=== PATIENT | male | born 1950 | race Caucasian/White ===

== ENCOUNTER 2020-02-08 17:50 | Observation (INO) | payer BC ==
[2020-02-08 18:37] LABS: #Basophils 0.1 thou/uL (0.0-0.2); #Eosinphils 0.2 thou/uL (0.0-0.7); #Lymphocytes 2.5 thou/uL (1.20-3.40); #Monocytes 0.9 thou/uL (0.11-0.59); %Basophils 1.1 % (0.0-1.0); %Eosinophils 2.2 % (0.0-10.0); %Lymphocytes 23.1 % (21.0-51.0); %Monocytes 8.6 % (0.0-10.0); Hemoglobin 15.1 g/dL (14.0-18.0); Mean Corpuscular Hemoglobin 31.3 pg (27.0-31.0); Mean Corpuscular Volume 92.1 fL (78.0-98.0); Mean Platelet Volume 8.8 fL (7.4-10.4); Platelet Count 211 thou/uL (130-400); RBC Distribution Width 13.1 % (11.5-14.5); Red Blood Cell (RBC) Count 4.83 mill/uL (4.70-6.10); White Blood Cell (WBC) Count 10.8 thou/uL (4.8-10.8)
--- NOTE | 2020-02-08 18:46 | RAD ---
Chest one view HISTORY: Dyspnea. Chest pain. COMPARISON: 08/01/2016. FINDINGS: Cardiac silhouette is magnified and upper limits of normal in size. Pulmonary vasculature i s unremarkable. Mediastinum is midline. No lobar consolidation or evidence of pneumothorax. ekg monitor leads overlie the chest. IMPRESSION : No active cardiopulmonary abnormalities are demonstrated.
[2020-02-08 19:00] LABS: ALT (SGPT) 20 U/L (8-55); AST (SGOT) 16 U/L (5-34); Albumin 4.1 g/dL (3.4-4.8); Alkaline Phosphatase 65 U/L (40-110); Anion Gap 14 mmol/L (10-20); BUN (Urea Nitrogen) 10 mg/dL (8.4-25.7); Bilirubin, Total 0.5 mg/dL (0.2-1.2); Calc. Creatinine Clearance 0 mL/min (70-130); Calcium 9.1 mg/dL (7.8-10.44); Carbon Dioxide 23 mmol/L (23-31); Chloride 106 mmol/L (98-107); Estimated GFR-MDRD Greater than 90; Globulin 2.4 g/dL (2.4-3.5); Glucose 132 mg/dL (80-115); Potassium 3.3 mmol/L (3.5-5.1); Protein, Total 6.5 g/dL (5.8-8.1); Sodium 140 mmol/L (136-145)
[2020-02-08] MEDS ORDERED: Nitroglycerin 0.4 MG TAB 1 EACH ONE (19:19)
[2020-02-08] MEDS ORDERED: Aspirin 325 MG TAB ONE (19:19)
[2020-02-08] MEDS ORDERED: Ondansetron PF 4 MG/2 ML Vial ONE (22:25)
[2020-02-08] MEDS ORDERED: Morphine 4 MG/ML VIAL ONE (22:25)
--- NOTE | 2020-02-08 22:38 | CT ---
CT arteriogram chest with IV contrast and 3-D imaging HISTORY: Dyspnea. Chest pain. FINDINGS: Small low density filling defects are present within segmental and subsegmental branches of the right upper lobe and right lower lobe. Contrast passes beyond the emboli. No filling defects on the left. Lungs are well-inflated. No mediastinal adenopathy. No pleural fluid or pneumothorax. IMPRESSION : Pulmonary emboli right lung with overall low clot burden. Findings were called to Dr. Waldrop in the emergency department at 2231 hours Code CR.
[2020-02-08] MEDS ORDERED: Enoxaparin Sodium 80 MG/0.8 ML SYRINGE ONE (22:47)
[2020-02-08] MEDS ORDERED: Enoxaparin Sodium 30 MG/0.3 ML SYRINGE ONE (22:47)
--- NOTE | 2020-02-08 23:14 | PDOC.FPRHP ---
- History of Present Illness Chief Complaint: SOB, chest tightness History of Present Illness: 69yo CM with h/o PVCs, HLD, HTN, DMII presents for acute worsening of SOB with associated chest tightness. Patient states he has chronic mild shortness of breathing with exertion and chronic substernal chest pressure but yesterday morning at acute onset of worsening shortness of breath. Persisted throughout the day and unable to sleep overnight last night. This morning noticed chest pressure was worse so decided to come into ED to be seen. He also endorses approximately 3 days ago his R calf was swollen, mild cramping pain, and has since improved. He also endorses mild LE edema that is chronic. No orthopnea or PND. No chest pain, describes as a pressure. No diaphoresis, n/v, radiation of pain, or syncopal episodes. No recent sick contacts, known COVID-19 contacts, fever/chills or cough. No recent travel, immbolization, OTC supplements, surgeries, or history of blood clots. No known family history of clotting disorders. ED Course: EKG with PVCs. Trop neg. CTA with small R PE. Given Lovenox, ASA, nitro. Admitted to tele. - Allergies/Adverse Reactions Allergies Allergy/AdvReac Type Severity Reaction Status Date / Time No Known Allergies Allergy Verified 02/09/20 00:27 - Home Medications Medication Instructions Recorded Confirmed Type Amlodipine Besylate/Benazepril 1 capsule PO DAILY 08/01/16 02/09/20 History [amLODIPine Besylate/Benazepril] Hydrochlorothiazide 25 mg PO DAILY 08/01/16 02/09/20 History Aspirin [Ecotrin Low Strength] 81 mg PO DAILY 02/08/20 02/09/20 History Atorvastatin Calcium 10 mg PO DAILY 02/08/20 02/09/20 History Metoprolol Succinate 100 mg PO DAILY 02/08/20 02/09/20 History Zolpidem Tartrate [Ambien CR] 12.5 mg PO HS PRN 02/08/20 02/09/20 History metFORMIN HCl [Metformin HCl ER] 1,000 mg PO DAILY 02/08/20 02/09/20 History Apixaban [Eliquis] 5 mg PO BID #68 tab 02/09/20 Rx - History PMHx: PVCs - followed by Dr. Barragna, HLD, DMII, HTN PSHx: knee FHx: Father of [place] at age 58 Social: No tob, social etOH, no illicits. Lives alone. Works for [employer] in [employer]. - Review of Systems General: denies: fever/chills, weight/appetite/sleep changes, fatigue Eyes: denies: vision changes ENT: denies: nasal congestion, rhinorrhea Respiratory: reports: shortness of breath, exercise intolerance. denies: cough , congestion Cardiovascular: reports: chest pain, edema. denies: palpitation, paroxysmal nocturnal dyspnea, orthopnea Gastrointestinal: denies: nausea, vomiting, diarrhea, constipation, abdominal pain Genitourinary: denies: incontinence Skin: denies: rashes Musculoskeletal: reports: pain, swelling Neurological: denies: numbness, syncope - Vital signs BP: 126/83 HR: 83 RR: 18 Tmax: 98.8 Pox: 96% on RA Wt: 108kg - Physical Exam Constitutional: NAD, awake, alert and oriented, well developed HEENT: PERRLA, EOMI, conjunctiva clear, no scleral icterus, grossly normal vision, grossly normal hearing, MMM Neck: supple, trachea midline Heart: RRR, normal S1/S2, no murmurs/rubs/gallops, pulses present, other (1+ pitting edema to mid-ochoa) Lungs: CTAB, no respiratory distress, good air movement, no rales/rhonchi, no wheezing Abdomen: soft, non-tender, bowel sounds present, no masses/distention Musculoskeletal: normal structure, normal tone, other (R calf midly TTP as compared to L, no significant difference in size grossly) Neurological: no focal deficit Skin: no rash/lesions Heme/Lymphatic: no unusual bruising or bleeding Psychiatric: normal mood and affect, good judgment and insight, intact recent and remote memory FMR H&P: Results - Labs Result Diagrams: 02/08/20 18:29 02/09/20 03:54 Lab results: WBC 10.8 thou/uL (4.8-10.8) 02/08/20 18:29 Hgb 15.1 g/dL (14.0-18.0) 02/08/20 18: Hct 44.4 % (42.0-52.0) 02/08/20 18: MCV 92.1 fL (78.0-98.0) 02/08/20 18:29 Plt Count 211 thou/uL (130-400) 02/08/20 18:29 Neutrophils % 65.0 % (42.0-75.0) 02/08/20 18:29 Sodium 140 mmol/L (136-145) 02/08/20 18:29 Potassium 3.3 mmol/L (3.5-5.1) L 02/08/20 18:29 Chloride 106 mmol/L (98-107) 02/08/20 18:29 Carbon Dioxide 23 mmol/L (23-31) 02/08/20 18:29 BUN 10 mg/dL (8.4-25.7) 02/08/20 18:29 Creatinine 0.75 mg/dL (0.7-1.3) 02/08/20 18:29 Glucose 132 mg/dL (80-115) H 02/08/20 18:29 Calcium 9.1 mg/dL (7.8-10.44) 02/08/20 18: Total Bilirubin 0.5 mg/dL (0.2-1.2) 02/08/20 18:29 AST 16 U/L (5-34) 02/08/20 18: ALT 20 U/L (8-55) 02/08/20 18: Alkaline Phosphatase 65 U/L (40-110) 02/08/20 18:29 B-Natriuretic Peptide 312.4 pg/mL (0-100) H 02/08/20 18:29 Serum Total Protein 6.5 g/dL (5.8-8.1) 02/08/20 18:29 Albumin 4.1 g/dL (3.4-4.8) 02/08/20 18:29 Lipase 15 U/L (8-78) 02/08/20 18:29 - EKG Interpretation EKG: Normal axis, NSR with frequency PVCs. No acute ST changes. Good R wave progression. QTc 468 - Radiology Interpretation Chest x-ray Status: image reviewed by me (no acute process, clear lung gusman, sharp angles , mild cardiomegaly), report reviewed by me CT scan - chest Status: report reviewed by me (R pulmonary embolism, low clot burden) FMR H&P: A/P - Problem List (1) Pulmonary embolism Status: Acute Code(s): I26.99 - OTHER PULMONARY EMBOLISM WITHOUT ACUTE COR PULMONALE Qualifiers: Chronicity: acute (2) Elevated brain natriuretic peptide (BNP) level Status: Acute Code(s): R79.89 - OTHER SPECIFIED ABNORMAL FINDINGS OF BLOOD CHEMISTRY (3) PVC (premature ventricular contraction) Status: Chronic Code(s): I49.3 - VENTRICULAR PREMATURE DEPOLARIZATION (4) HLD (hyperlipidemia) Status: Chronic Code(s): E78.5 - HYPERLIPIDEMIA, UNSPECIFIED (5) HTN (hypertension) Status: Chronic Code(s): I10 - ESSENTIAL (PRIMARY) HYPERTENSION - Plan 69yo CM with h/o PVCs, HLD, HTN, DMII admitted for R-sided PE. #Pulmonary Embolism - Presents with SOB, substernal chest tightness, 3 day history of RLE calf swelling and pain - appears unprovoked - no recent travel, immobilization, or surgery, no OTC supplements, nonsmoker. No personal or family history of clotting disorders. Risk factor of obesity - hemodynamically stable - EKG with prolonged QT of 468, PVCs, no ST changes or signs of R heart strain - CTA with R-sided PE, low clot burden - Given Lovenox in ED - LE doppler US pending - Echo ordered - will transition to Eliquis in AM, 10mg BID x7d, then 5mg BID. Will need minimum 3 months anticoagulation #Elevated BNP - History of PVC's - followed by Dr. Barragan - possibly 2/2 PE and heart strain - Echo ordered - 1+ pitting edema BL LE, no orthopnea/PND. Lungs clear on exam - will monitor and await Echo report - consider stress as outpt - last stress in 2016 per records was WNL #QT prolongation - QTc 468 - monitor on tele, avoid QT prolonging agents #H/o PVC's - followed by Dr. Barragan - per patient, number of PVCs have improved, on metoprolol, will cont - monitor on tele #DMII - cont metformin. Hyperglycemic protocol - will check A1C and FLP #HTN - cont home meds and monitor #HLD - cont home atorva - check FLP PCP: Arabella Code: Full IVF: SL Diet: HH VTE: Eliquis Disposition/LOS: Admit to tele inpt for PE and elevated BNP. Anticoagulation, echo pending. Anticipate LOS 48-72hrs. FMR H&P: Upper Level - Plan Date/Time: 02/08/20 5624 I, Yaneth Huizar, have evaluated this patient and agree with findings/plan as outlined by mechanical intern resident. Pertinent changes/additions are listed here. 69 yo M presents for SOB and is admitted for PE. Reports acute onset SOB yesterday morning. Had difficulty sleeping last night. 3 days ago noticed R calf was swollen, cramping, tingling. He at first thought he had shingles without a rash. Reports mild chest tightness. Denies orthopnea, cough. No long travel, surgery, supplements, sedentary, smoking. Has h/o PVCs and is managed by Dr. Barragan. Given ASA and nitro in ED. Notes has had mild intermittent BLE edema for years. PMH reviewed VS 121/45, 75, 16, 98.8, 98% on RA PE Gen: NAD Heart: RRR, normal S1/S2 Lungs: CTAB Ext: bilateral LE appear same, no redness. BLE 1+ pitting edema up to upper ochoa. Pulses full. Pulmonary Embolism, unprovoked - s/p lovenox in ED - D-dimer was 3.7. CTA showed right sided PE with overall low clot burden - EKG with prolonged QT of 468, PVCs, no ST changes or signs of R heart strain - Trop .017, repeat pending - LE Doppler pending - start eliquis, 10mg BID for 7 days then 5mg BID. Could have 3 month course and then discontinue. This conversation can be continued with PCP outpatient. Elevated BNP - BNP 312, Last BNP in system was normal 4 years ago - Could be 2/2 heart strain from PE vs more chronic finding - Echo ordered Hx recurrent PVCs -continue home metoprolol, monitor on telemetry Hypokalemia - Replace with 40meq and recheck in am See mechanical intern note for other chronic medical problems PCP: Arabella Attending: Dispo: admit to telemetry for observation. Patient stable. Plan for echo in am, repeat trop pending. Expected LOS <48hrs. Addendum - Attending - Attending Attestation Date/Time: 02/10/20 2890 I personally evaluated the patient and discussed the management with Dr. Estrada on n02/08/20. I agree with the History, Examination, Assessment and Plan documented above with any addition or exceptions noted below. 69 y.o. WM with h/o PVCs, HLD, HTN, DMII here with dyspnea found to have PE. Initiating anticoagulation.
[2020-02-08 23:24] LABS: Prothrombin Time 12.9 sec (12.0-14.7)
[2020-02-08 23:43] LABS: Troponin I 0.036 ng/mL (< 0.028)
[2020-02-08] MEDS ORDERED: Ondansetron PF 4 MG/2 ML Vial IVP PRN (23:53)
[2020-02-08] MEDS ORDERED: HYDROcodone/Acetaminophen 5/325 mg Tablet PO PRN ×2 (23:53)
[2020-02-08] MEDS ORDERED: Ondansetron ODT 4 MG TAB SL PRN (23:53)
[2020-02-08] MEDS ORDERED: Dextrose 5% in Water 1,000 ML IV PRN (23:58)
[2020-02-08] MEDS ORDERED: Dextrose 50% Abboject 50 ML SYRINGE SLOW IVP PRN (23:58)
[2020-02-08] MEDS ORDERED: Calcium Carbonate 500 MG ChewTAB PO PRN (23:58)
[2020-02-08] MEDS ORDERED: Acetaminophen 325 MG TAB PO PRN (23:58)
[2020-02-09] MEDS ORDERED: Potassium Chloride 20 MEQ TAB PO SCH ×2 (00:01→08:00)
[2020-02-09 00:34] VITALS: BMI 33.1
[2020-02-09 02:18] LABS: Troponin I 0.031 ng/mL (< 0.028)
[2020-02-09 04:57] LABS: Anion Gap 13 mmol/L (10-20); BUN (Urea Nitrogen) 10 mg/dL (8.4-25.7); Calc. Creatinine Clearance 143 mL/min (70-130); Calcium 8.7 mg/dL (7.8-10.44); Carbon Dioxide 24 mmol/L (23-31); Cardiac Risk 4.6 (Less than 4.5); Chloride 107 mmol/L (98-107); Cholesterol 155 mg/dl (< 200 Desired); Estimated GFR-MDRD Greater than 90; Glucose 116 mg/dL (80-115); HDL Cholesterol 34 mg/dL (>60 Neg Risk); LDL Cholesterol, Calculated 93 mg/dL; Potassium 3.3 mmol/L (3.5-5.1); Sodium 141 mmol/L (136-145); Triglycerides 140 mg/dL (Less than 150)
--- NOTE | 2020-02-09 07:07 | PDOC.FM ---
- Subjective Subjective: Shortness of breath has improved. Denies chest pain, palpitations. Good appetite this morning. No concerns. - Objective MAR Reviewed: Yes Vital Signs & Weight: Vital Signs (12 hours) Temp Pulse Resp BP Pulse Ox 02/09/20 03:35 98.7 F 105 H 18 157/72 H 96 02/08/20 23:45 98.4 F 80 20 166/74 H 96 Weight Weight 104.734 kg I&O: 02/08/20 02/09/20 02/10/20 06:59 06:59 06:59 Intake Total 250 Output Total 450 Balance -200 Result Diagrams: 02/08/20 18:29 02/09/20 03:54 Phys Exam - Physical Examination Constitutional: NAD HEENT: moist MMs Neck: supple Respiratory: no wheezing, clear to auscultation bilateral Frequent PVCs. No murmur Gastrointestinal: soft, non-tender Musculoskeletal: no edema Neurological: moves all 4 limbs Psychiatric: normal affect, A&O x 3 Skin: no rash Dx/Plan - Plan Plan: Pulmonary Embolism - CTA with R-sided PE, low clot burden. LE US with DVT - Continue Eliquis 10mg BID x7d, then 5mg BID. Will need minimum 3 months anticoagulation - Echo ordered Low TSH - Normal T4/T3 Elevated BNP - History of PVC's - followed by Dr. Barragan - possibly 2/2 PE and heart strain - Echo ordered - Consider stress as outpt - last stress in 2015 per records was WNL QT prolongation - QTc 468 - Monitor on tele, avoid QT prolonging agents H/o PVC's - Continue Metoprolol DMII - Cont metformin - A1c pending HTN - Cont home meds and monitor HLD - Continue home atorva - Check FLP PCP: Arabella Code Status: Full Addendum - Attending - Attending Attestation Date/Time: 02/09/20 1120 I personally evaluated the patient and discussed the management with Dr. Pemberton I agree with the History, Examination, Assessment and Plan documented above with any addition or exceptions noted below - Patient without complaints. SOB much improved. Afebrile VSS. A/P: 1) Right DVT with PE- no O2 requirement; now on eliquis; continue current meds; Echo pending to evaluate right heart. 2) DM- continue home meds. Possible d/c later today versus tomorrow.
[2020-02-09 07:09] VITALS: TEMP 98.5
[2020-02-09] MEDS ORDERED: metFORMIN XR 500 MG TAB PO SCH (08:00)
--- NOTE | 2020-02-09 08:44 | ULT ---
PRELIMINARY REPORT/DIRECT RADIOLOGY/EMERGENCY AFTER HOURS PROCEDURE This report was discussed with Fidelia Moreira RN by Daniela Mckeon on February 09, 2020 07:15:00 CDT. Ad dendum electronically signed by Daniela Mckeon on February 09, 2020 7:17:43 AM CDT EXAM: US Duplex right Lower Extremity Veins. CLINICAL HISTORY: HX: PE, RLE PAIN. SEE NOTES ON LAST IMAGE. THANKS TECHNIQUE: Real-time ultrasound scan of the veins of the right lower extremity with color Doppler cyndee w, spectral waveform analysis and compression. COMPARISON: None provided. FINDINGS: DEEP VEINS: Nonocclusive intraluminal filling defect in the distal right popliteal vein with loss of compressibility and diminished flow, consistent with DVT. The common femoral and femoral veins are ec holucent and compressible and demonstrate respiratory variation and augmentation with normal color Do ppler flow. The visualized calf veins are also patent. SUPERFICIAL VEINS: The visualized greater saphenous vein is patent. SOFT TISSUES: No popliteal fossa cyst or other abnormalities. IMPRESSION: Nonocclusive DVT in the distal right popliteal vein. ELECTRONICALLY SIGNED BY: Ginger Busch MD February 09, 2020 7:13:20 AM CDT FINAL REPORT EMERGENT AFTER HOURS RIGHT LOWER EXTREMITY VENOUS DOPPLER: IMPRESSION: Agree with the preliminary interpretation. Nonocclusive thrombus is seen within the right popliteal vein. POS: [facility]
[2020-02-09] MEDS ORDERED: Atorvastatin Calcium 10 MG TAB PO SCH (09:00)
[2020-02-09] MEDS ORDERED: Prevnar 13-Val Conj/PF 0.5 ML SYRINGE IM ONE (09:00)
[2020-02-09] MEDS ORDERED: Hydrochlorothiazide 25 MG TAB PO SCH (09:00)
[2020-02-09] MEDS ORDERED: Non-Formulary Item 1 EACH (Amlodipine Besylate/Benazepril [Amlodipine Besylate/Benazepril PO SCH (09:00)
[2020-02-09] MEDS ORDERED: Lisinopril 20 MG TAB PO SCH (09:00)
[2020-02-09] MEDS ORDERED: Enoxaparin Sodium 100 MG/ML SYRINGE SC SCH (09:00)
[2020-02-09] MEDS ORDERED: Amlodipine 10 MG TAB PO SCH (09:00)
[2020-02-09] MEDS ORDERED: Apixaban 5 MG TAB PO SCH (09:00)
[2020-02-09] MEDS ORDERED: Aspirin 81 mg Enteric Coated Tablet PO SCH (09:00)
[2020-02-09 11:55] VITALS: BP 128/75
--- NOTE | 2020-02-10 04:27 | DIS ---
DATE OF ADMISSION: 02/08/2020 DATE OF DISCHARGE: 02/09/2020 RESIDENT: Inez Pemberton, PGY-2. ADMITTING ATTENDING: Dr. Adrian Schwab. DISCHARGE ATTENDING: Dr. Juhi Wilder. CONSULTS: None. PROCEDURES: 1. Chest x-ray 02/08/2020, no active cardiopulmonary abnormalities demonstrated. 2. Chest CTA 02/08/2020, pulmonary emboli, right lung with overall low clot burden. 3. Vascular ultrasound 02/09/2020, impression, nonocclusive deep venous thrombosis in the distal right popliteal vein. 4. Echocardiogram 02/09/2020, EF 55% to 60%. Left atrium moderately dilated. No evidence of mitral regurgitation or mitral valve stenosis. Structurally normal aortic valve with no significant stenosis or regurgitation. Trace tricuspid regurgitation. PRIMARY DIAGNOSES: 1. Pulmonary embolism. 2. Subclinical hyperthyroidism. 3. Elevated BNP. 4. QT prolongation. 5. History of premature ventricular contractions. 6. Type 2 diabetes. 7. Hypertension. 8. Hyperlipidemia. DISCHARGE MEDICATIONS: 1. Eliquis 10 mg p.o. b.i.d. x7 days and 5 mg b.i.d. thereafter. 2. Aspirin 81 mg daily. 3. Atorvastatin 10 mg daily. 4. Hydrochlorothiazide 25 mg daily. 5. Metformin 1000 mg daily. 6. Metoprolol succinate at 100 mg p.o. daily. 7. Amlodipine 10 mg-benazepril 40 mg combined tablet one capsule daily. 8. Ambien 12.5 mg at bedtime. HISTORY OF PRESENT ILLNESS AND HOSPITAL COURSE: Mr. Winkler is a 69-year-old male with past medical history of frequent PVCs, hypertension, hyperlipidemia, type 2 diabetes, presented with shortness of breath and had an elevated D-dimer and subsequent CTA showing pulmonary embolism. He had a lower extremity ultrasound showing nonocclusive clot in right popliteal vein. He never had an oxygen requirement. EKG showed frequent PVCs as did telemetry monitoring. He denied any palpitations or chest pain. His initial troponin 0.017, 0.036, and 0.031. BNP slightly elevated at 312.4. TSH 0.2929 with a normal T4, T3 thyroglobulin antibodies checked and pending at this time. In the ER, he was given Lovenox, aspirin, and nitroglycerin. He had improvement in his symptoms and shortness of breath following this. He had an echo that showed no signs of right heart strain. He was transitioned to Eliquis b.i.d. He will need a minimum of 3 months anticoagulation. It appears to be unprovoked. He has no recent travel and no recent immobilization or surgery. He is a nonsmoker. Family history is negative for PE/DVT, his only risk factor appears to be obesity. This will need to be further worked up by patients PCP. However, he had already received Lovenox prior to being able to have the labs drawn for coagulation disorders so results may be inaccurate. EKG noted to have a QT prolongation, QTc 468. He follows with Dr. Barragan for his history of recurrent PVCs.He is found to be have subclinical hyperthyroidism, which can be associated with arrhythmias and atrial fibrillation might possibly be a cause of his PVCs; therefore, thyroglobulin antibodies are pending at this time. In regard to his type 2 diabetes, he has continued on his home metformin and his A1C is pending at this time. Chronic medical conditions of hypertension and hyperlipidemia were managed with home medications and stable throughout course of hospitalization. DISPOSITION: Stable. DISCHARGE INSTRUCTIONS: 1. Location: Home. 2. Diet: Heart healthy, carb consistent. 3. Activity: As tolerated. 4. Followup: Follow up with Dr. Bell within 7 days and follow up with Dr. Barragan within 2 to 3 weeks. Job ID: [id number] MTDD
--- NOTE | 2020-02-15 12:44 | EKG ---
Test Reason : Blood Pressure : / mmHG Vent. Rate : 083 BPM Atrial Rate : 083 BPM P-R Int : 160 ms QRS Dur : 106 ms QT Int : 406 ms P-R-T Axes : 035 006 054 degrees QTc Int : 477 ms Undetermined rhythm Nonspecific ST abnormality Abnormal ECG Premature ventricular complexes Confirmed by LAN MORGAN M.D. ([id number]), copy editor RANDALL ARELLANO ([id number]) on 02/15/2020 12:43:56 PM Referred By: Confirmed By:LAN MORGAN M.D.
--- NOTE | 2020-02-15 12:46 | EKG ---
Test Reason : REPEAT Blood Pressure : / mmHG Vent. Rate : 070 BPM Atrial Rate : 070 BPM P-R Int : 142 ms QRS Dur : 102 ms QT Int : 434 ms P-R-T Axes : 038 022 066 degrees QTc Int : 468 ms Sinus rhythm with frequent Premature ventricular complexes Possible Left atrial enlargement Nonspecific ST and T wave abnormality Prolonged QT Abnormal ECG Premature ventricular complexes #2 Confirmed by LAN MORGAN M.D. ([id number]), telegraph editor RANDALL ARELLANO ([id number]) on 02/15/2020 12:45:55 PM Referred By: Confirmed By:LAN MORGAN M.D.
== END 2020-02-09 15:28 | disposition home or self-care (01) ==
LOC: ERS 17:50 → 2NO 22:58
PROVIDERS: ADMIT Family Medicine; ATTEND Family Medicine
DX: I26.99 Other pulmonary embolism without acute cor pulmonale (principal); I10 Essential (primary) hypertension; E11.9 Type 2 diabetes mellitus without complications; E78.5 Hyperlipidemia, unspecified; E87.6 Hypokalemia; E05.90 Thyrotoxicosis, unspecified without thyrotoxic crisis or storm; I45.81 Long QT syndrome; I49.3 Ventricular premature depolarization; R79.89 Other specified abnormal findings of blood chemistry; Z79.82 Long term (current) use of aspirin; Z79.01 Long term (current) use of anticoagulants; Z79.899 Other long term (current) drug therapy
CPT/HCPCS: 36415; 36416; 71045; 71275; 80048; 80053; 80061; 83690; 83735; 83880; 84238; 84439; 84443; 84481; 84484; 85025; 85379; 85610; 93005; 93306; 96372; G0378; J1650; J2270; J2405

== ENCOUNTER 2020-02-22 21:43 | Emergency (ER) | payer BC ==
[2020-02-22 22:25] LABS: #Basophils 0.1 thou/uL (0.0-0.2); #Eosinphils 0.2 thou/uL (0.0-0.7); #Lymphocytes 2.1 thou/uL (1.20-3.40); #Monocytes 0.9 thou/uL (0.11-0.59); %Eosinophils 1.9 % (0.0-10.0); %Lymphocytes 18.5 % (21.0-51.0); %Monocytes 7.8 % (0.0-10.0); %Neutrophils 70.8 % (42.0-75.0); Hemoglobin 15.6 g/dL (14.0-18.0); Mean Corpuscular HGB CONC 32.6 g/dL (32.0-36.0); Mean Corpuscular Hemoglobin 30.1 pg (27.0-31.0); Mean Corpuscular Volume 92.3 fL (78.0-98.0); Mean Platelet Volume 8.8 fL (7.4-10.4); Platelet Count 253 thou/uL (130-400); Red Blood Cell (RBC) Count 5.18 mill/uL (4.70-6.10); White Blood Cell (WBC) Count 11.3 thou/uL (4.8-10.8)
[2020-02-22 22:40] LABS: ALT (SGPT) 23 U/L (8-55); AST (SGOT) 16 U/L (5-34); Albumin 4.3 g/dL (3.4-4.8); Alkaline Phosphatase 68 U/L (40-110); Anion Gap 16 mmol/L (10-20); BUN (Urea Nitrogen) 13 mg/dL (8.4-25.7); Bilirubin, Total 0.6 mg/dL (0.2-1.2); Calc. Creatinine Clearance 0 mL/min (70-130); Calcium 9.2 mg/dL (7.8-10.44); Carbon Dioxide 23 mmol/L (23-31); Chloride 106 mmol/L (98-107); Estimated GFR-MDRD 77; Globulin 2.9 g/dL (2.4-3.5); Glucose 138 mg/dL (80-115); Potassium 3.1 mmol/L (3.5-5.1); Protein, Total 7.2 g/dL (5.8-8.1); Sodium 142 mmol/L (136-145)
[2020-02-22] MEDS ORDERED: Ondansetron PF 4 MG/2 ML Vial ONE (22:48)
--- NOTE | 2020-02-22 23:58 | RAD ---
CHEST 1 VIEW: Date: 02/22/2020 HISTORY: Shortness of breath. COMPARISON: Radiograph dated 02/08/2020. FINDINGS: Lungs are without confluent air space consolidation, pneumothorax, or effusion. Cardiac silhouette an d mediastinal contours are similar. No acute osseous abnormality. IMPRESSION: No acute intrathoracic abnormality. POS: HOME
[2020-02-23 02:04] LABS: CKMB 0.8 ng/mL (0-6.6)
== END 2020-02-23 00:45 | disposition home or self-care (01) ==
LOC: ERS 21:43
DX: R06.02 Shortness of breath (principal); E78.00 Pure hypercholesterolemia, unspecified; I10 Essential (primary) hypertension
CPT/HCPCS: 71045; 80053; 82553; 83880; 84484; 85025; 93005; J2405

== ENCOUNTER 2020-04-19 17:49 | Observation (INO) | payer BC, MEDICARE ==
[2020-04-19] MEDS ORDERED: Aspirin Chewable 81 MG TAB ONE (18:09)
[2020-04-19] MEDS ORDERED: Morphine 4 MG/ML VIAL ONE ×2 (18:09→19:16)
[2020-04-19 18:20] LABS: #Basophils 0.1 thou/uL (0.0-0.2); #Eosinphils 0.1 thou/uL (0.0-0.7); #Lymphocytes 2.7 thou/uL (1.20-3.40); #Monocytes 0.9 thou/uL (0.11-0.59); #Neutrophils 4.9 thou/uL (1.40-6.50); %Eosinophils 1.1 % (0.0-10.0); %Lymphocytes 31.1 % (21.0-51.0); %Monocytes 9.9 % (0.0-10.0); %Neutrophils 56.9 % (42.0-75.0); Hemoglobin 14.6 g/dL (14.0-18.0); Mean Corpuscular HGB CONC 33.6 g/dL (32.0-36.0); Mean Corpuscular Hemoglobin 30.5 pg (27.0-31.0); Mean Corpuscular Volume 90.6 fL (78.0-98.0); Mean Platelet Volume 9.5 fL (7.4-10.4); Platelet Count 224 thou/uL (130-400); RBC Distribution Width 13.2 % (11.5-14.5); Red Blood Cell (RBC) Count 4.78 mill/uL (4.70-6.10); White Blood Cell (WBC) Count 8.6 thou/uL (4.8-10.8)
[2020-04-19 18:27] LABS: INR-International Normal Ratio 1.2
[2020-04-19 18:29] LABS: D-Dimer Test Less than 0.27 *mcg/mL (0.27-0.43)
[2020-04-19 18:40] LABS: ALT (SGPT) 20 U/L (8-55); AST (SGOT) 19 U/L (5-34); Albumin 4.2 g/dL (3.4-4.8); Alkaline Phosphatase 53 U/L (40-110); Anion Gap 15 mmol/L (10-20); BUN (Urea Nitrogen) 16 mg/dL (8.4-25.7); Bilirubin, Total 0.8 mg/dL (0.2-1.2); Calc. Creatinine Clearance 0 mL/min (70-130); Calcium 9.3 mg/dL (7.8-10.44); Carbon Dioxide 24 mmol/L (23-31); Chloride 104 mmol/L (98-107); Estimated GFR-MDRD 66; Globulin 2.7 g/dL (2.4-3.5); Glucose 122 mg/dL (80-115); Lipase 124 U/L (8-78); Protein, Total 6.9 g/dL (5.8-8.1); Sodium 140 mmol/L (136-145)
[2020-04-19 18:44] LABS: Potassium 2.9 mmol/L (3.5-5.1)
[2020-04-19] MEDS ORDERED: Potassium Chloride 20 MEQ TAB ONE ×2 (18:48→23:01)
[2020-04-19 19:03] LABS: CKMB 1.7 ng/mL (0-6.6)
--- NOTE | 2020-04-19 19:24 | RAD ---
SINGLE VIEW OF THE CHEST: Comparison: 04-15-2020 History: Chest pain FINDINGS: Single view of the chest shows a normal sized cardiomediastinal silhouette. There is no evidence of c onsolidation, mass, or pleural effusion. The bones are unremarkable. IMPRESSION: No evidence of acute cardiopulmonary disease. POS: [facility]
--- NOTE | 2020-04-19 20:07 | PDOC.FPRHP ---
- History of Present Illness Chief Complaint: Chest Pain History of Present Illness: 69-year-old male with prior history of PE, DVT, HTN, DM, HLD currently on Eliquis presenting with new onset chest pain for the duration of the day. He states the pain is located on his L breast and under his arm and radiates between his shoulder blades. He states he noticed sharp pain this morning as soon as he woke up and that it worsened throughout the day, peaked, and then decreased to a stable pain he describes as being achy, not associated with exertion. He has been having waxing and waning recurrent CP for the past few months that he has been seeing Dr. Barragan for, the last time being about 6 mo ago. He endorses chest tightness with deep breaths, occasional LE edema but denies SOB/dyspnea/SHAVER/vision changes. He took 4 Tylenol over a period of 4-5 hours and then 2 Tylenol #3, none of which helped. He took an 81mg ASA this morning. He says the morphine he got in the ED has helped decrease the pain but he still feels discomfort. He does have a family history of heart disease with a father who at the age of 58. He has not had any prior cardiac history in the past or any history of stents or heart cath. Had a normal stress test with Dr. Marr about 3 yrs ago and has had echos in the past that were normal. Patient notes this episode is different from when he had his PE, stating he had more shortness and breath and less CP with the PE. Patient reports hx of reflux , typically relieved with sipping water, notes he sipped some water after onset today and it mildly improved his sxs. ED Course: In ED received 4mg morphin IV x2, aspirin 325mg, and KCl 40mEq - Allergies/Adverse Reactions Allergies Allergy/AdvReac Type Severity Reaction Status Date / Time No Known Allergies Allergy Verified 04/19/20 23:08 - Home Medications Medication Instructions Recorded Confirmed Type Amlodipine Besylate/Benazepril 1 capsule PO DAILY 08/01/16 04/19/20 History [amLODIPine Besylate/Benazepril] Hydrochlorothiazide 25 mg PO DAILY 08/01/16 04/19/20 History Aspirin [Ecotrin Low Strength] 81 mg PO DAILY 02/08/20 04/19/20 History Atorvastatin Calcium 10 mg PO DAILY 02/08/20 04/19/20 History Metoprolol Succinate 100 mg PO DAILY 02/08/20 04/19/20 History Zolpidem Tartrate [Ambien CR] 12.5 mg PO HS PRN 02/08/20 04/19/20 History metFORMIN HCl [Metformin HCl ER] 1,000 mg PO DAILY 02/08/20 04/19/20 History Apixaban [Eliquis] 5 mg PO BID #68 tab 02/09/20 04/19/20 Rx - History PMHx:DM, HLD, PVCs, HTN, DVT/PE 2 mo ago PSHx: Knee FHx: Family history of heart disease with a father who at the age of 58 Social:Denies hx of smoking/illicit drug use, endorses "very little" EtOH use - Review of Systems General: denies: fever/chills, weight/appetite/sleep changes Eyes: denies: eye pain, vision changes ENT: denies: nasal congestion, rhinorrhea Respiratory: reports: other (chest tightness with deep breaths). denies: cough , congestion, shortness of breath, exercise intolerance Cardiovascular: reports: chest pain. denies: palpitation, edema, orthopnea Gastrointestinal: denies: nausea, vomiting, diarrhea, abdominal pain Genitourinary: denies: incontinence, dysuria Skin: denies: rashes, lesions Musculoskeletal: denies: pain, tenderness Neurological: denies: numbness, syncope Psychological: denies: anxiety, depression - Vital signs BP: 137/79 HR: 70 RR: 20 Tmax: 98.4 Pox: 96% on RA Wt: 98.88kg - Physical Exam Constitutional: NAD, awake, alert and oriented HEENT: normocephalic and atraumatic, PERRLA, EOMI Neck: supple, FROM, no JVD Chest: no-tender to palpation, no lesions Heart: no murmurs/rubs/gallops, pulses present, other (irregular rhythm, trace pitting edema in LLE) Lungs: CTAB, no respiratory distress, no retractions Abdomen: soft, non-tender, bowel sounds present Musculoskeletal: normal structure, ROM grossly normal Neurological: no focal deficit, CN II-XII intact Skin: no rash/lesions, good turgor Heme/Lymphatic: no unusual bruising or bleeding, no purpura Psychiatric: normal mood and affect, good judgment and insight, intact recent and remote memory FMR H&P: Results - Labs Result Diagrams: 04/20/20 05:51 04/20/20 05:51 Lab results: WBC 8.6 thou/uL (4.8-10.8) 04/19/20 18:08 Hgb 14.6 g/dL (14.0-18.0) 04/19/20 18:08 Hct 43.4 % (42.0-52.0) 04/19/20 18:08 MCV 90.6 fL (78.0-98.0) 04/19/20 18:08 Plt Count 224 thou/uL (130-400) 04/19/20 18:08 Neutrophils % 56.9 % (42.0-75.0) 04/19/20 18:08 Sodium 140 mmol/L (136-145) 04/19/20 18:08 Potassium 2.9 mmol/L (3.5-5.1) L* 04/19/20 18:08 Chloride 104 mmol/L (98-107) 04/19/20 18:08 Carbon Dioxide 24 mmol/L (23-31) 04/19/20 18:08 BUN 16 mg/dL (8.4-25.7) 04/19/20 18:08 Creatinine 1.11 mg/dL (0.7-1.3) 04/19/20 18:08 Glucose 122 mg/dL (80-115) H 04/19/20 18:08 Calcium 9.3 mg/dL (7.8-10.44) 04/19/20 18:08 Total Bilirubin 0.8 mg/dL (0.2-1.2) 04/19/20 18:08 AST 19 U/L (5-34) 04/19/20 18:08 ALT 20 U/L (8-55) 04/19/20 18:08 Alkaline Phosphatase 53 U/L (40-110) 04/19/20 18:08 CK-MB (CK-2) 1.7 ng/mL (0-6.6) 04/19/20 18:08 B-Natriuretic Peptide 99.4 pg/mL (0-100) 04/19/20 18:08 Serum Total Protein 6.9 g/dL (5.8-8.1) 04/19/20 18:08 Albumin 4.2 g/dL (3.4-4.8) 04/19/20 18:08 Lipase 124 U/L (8-78) H 04/19/20 18:08 - EKG Interpretation EKG: normal sinus with PVCs FMR H&P: A/P - Plan Patient is a 69 yo M, PMHx of HTN, DM, HLD, DVT/PE who presents for acute chest pain since this morning radiating to the shoulder blades. Atypical Chest Pain ACS vs GERD vs muscle strain vs PE - Trop: .034, CKMB: 1.7, BNP: 99, Lipase: 124, EKG sinus with PVCs, DD <.27, CXR : neg - Heart Score 7 - will continue to trend trops - famotidine scheduled, tylenol PRN - will continue cardiac monitoring, q4hr vitals - Ordered stress - NPO at midnight Hypokalemia K: 2.9, given 40 mEq PO in ED - will give another 40mEq PO - recheck on morning labs Hx of PVCs EKG: sinus rhythm with PVCs - sees cards Nic - on metorpolol succinate, will hold until after stress Hx of DMII Glu 122 - glucose monitoring ACHS - mild SS, will continue home metformin Hx of PE/DVT DD: <.27, CXR neg, no shortness of breath, no calf swelling/tenderness - will restart home Eliquis 5mg - q4 vitals Dispo: admit obs for CP w/u predicted stay <48 Code: Full code DVT Prophylaxis: home Eliquis 5mg FMR H&P: Upper Level - Plan Date/Time: 04/19/202005 IElysia MD, have evaluated this patient and agree with findings/plan as outlined by commercial intern resident. Pertinent changes/additions are listed here. This is a 69yo M with a PMH of PE/DVT, PVCs, HLD, HTN, DMII who presents to the ER with worsening chest pain that started yesterday. He reports intermittent chest pain. Sharp, radiating between shoulders and then arm at times. The patient states that the pain is actually better when walking. He reports he took tylenol and tylenol 3 at home that did not help the pain. He reports the morphine given in the ER did help the pain. He states that he had a stress test previously that was normal. Has never had a cath. He sees Dr. Bolanos and has an appointment with him tomorrow. Please see commercial intern note for full HPI and details. PE: General: NAD, Obese Cardio: irregular, no JVD, no murmurs, rubs or gallops; no TTP of chest wall Resp: CTAB, no wheezes, rales or rhonchi Abd: central obesity, soft, non tender, non distended MSK: trace swelling in b/l LE; no homans sign Psych: axox4, good insight/judgement Plan: Atypical Chest Pain 2/2 ACS vs GERD vs MSK Patient presenting with chest pain, hx of PE/DVT, DM, HTN. EKG showing PVCs, no ST changes. CXR normal. HEART score of 7 - high risk. - Initial trop 0.034, will continue to trend. - D-dimer neg, less concern worsened/new PE causing symptoms. - Stress in AM, NPO at midnight. Hold BB, CCB. - Admit to tele, obs Hypokalemia K - 2.9, given 40 mEq PO in ED - Will give another 40mEq PO, recheck and repalce as needed in the AM Hx of PVCs EKG: sinus rhythm with PVCs. - Sees cards Mateotrung, will notify in the AM that patient is here - On metorpolol succinate, will hold until after stress Hx of DMII Glu 122 - glucose monitoring ACHS - mild SS, will continue home metformin - A1c pending to help risk stratify Hx of PE/DVT Ddimer neg, CXR neg, no shortness of breath, no calf swelling/tenderness. - will restart home Eliquis 5mg Dispo: admit tele, obs. LOS <48hrs Code: Full code Ppx: home Eliquis 5mg, pepcid Case discussed with Dr. Abbott Addendum - Attending - Attending Attestation Date/Time: 04/20/20 3096 I personally evaluated the patient and discussed the management with the team. I agree with the History, Examination, Assessment and Plan documented above with any addition or exceptions noted below. Plan for stress. Already anticoagulated. Also admits to a large component of anxiety. Exam overall unremarkable. No chest wall TTP.
[2020-04-19] MEDS ORDERED: HumaLOG 300 UNITS/3 ML VIAL SC PRN ×2 (21:27)
[2020-04-19] MEDS ORDERED: Ondansetron PF 4 MG/2 ML Vial IVP PRN (21:27)
[2020-04-19] MEDS ORDERED: Ondansetron ODT 4 MG TAB PO PRN (21:27)
[2020-04-19] MEDS ORDERED: Dextrose 5% in Water 1,000 ML IV PRN (21:27)
[2020-04-19] MEDS ORDERED: Dextrose 50% Abboject 50 ML SYRINGE SLOW IVP PRN (21:27)
[2020-04-19] MEDS ORDERED: Famotidine 20 MG TAB PO SCH (21:45)
[2020-04-19 21:54] LABS: Troponin I 0.036 ng/mL (< 0.028)
[2020-04-19] MEDS ORDERED: Potassium Chloride 20 MEQ TAB PO SCH (22:00)
[2020-04-20] MEDS ORDERED: Acetaminophen 325 MG TAB PO PRN
[2020-04-20] MEDS ORDERED: Apixaban 5 MG TAB PO SCH (00:15)
[2020-04-20 01:27] LABS: Troponin I 0.027 ng/mL (< 0.028)
[2020-04-20] MEDS ORDERED: Nitroglycerin 0.4 MG TAB 1 EACH ONE (03:42)
[2020-04-20] MEDS: Nitroglycerin 0.4 MG TAB (25 Tab Bottle) PO PRN ×2 (03:45→04:20)
[2020-04-20] MEDS ORDERED: hydrALAZINE 20 MG/ML VIAL SLOW IVP PRN (04:07)
[2020-04-20] MEDS ORDERED: Acetaminophen 325 MG TAB ONE (04:49)
[2020-04-20 06:13] LABS: #Basophils 0.1 thou/uL (0.0-0.2); #Eosinphils 0.1 thou/uL (0.0-0.7); #Lymphocytes 1.8 thou/uL (1.20-3.40); #Monocytes 0.8 thou/uL (0.11-0.59); #Neutrophils 4.6 thou/uL (1.40-6.50); %Basophils 0.7 % (0.0-1.0); %Eosinophils 1.8 % (0.0-10.0); %Lymphocytes 24.1 % (21.0-51.0); %Monocytes 10.2 % (0.0-10.0); %Neutrophils 63.2 % (42.0-75.0); Hemoglobin 13.8 g/dL (14.0-18.0); Mean Corpuscular HGB CONC 33.2 g/dL (32.0-36.0); Mean Corpuscular Hemoglobin 30.5 pg (27.0-31.0); Mean Corpuscular Volume 91.8 fL (78.0-98.0); Mean Platelet Volume 9.1 fL (7.4-10.4); Platelet Count 207 thou/uL (130-400); Red Blood Cell (RBC) Count 4.54 mill/uL (4.70-6.10); White Blood Cell (WBC) Count 7.3 thou/uL (4.8-10.8)
[2020-04-20 06:15] LABS: Hemoglobin A1c 6.1 % (4.0-6.0)
[2020-04-20 06:28] LABS: ALT (SGPT) 17 U/L (8-55); AST (SGOT) 16 U/L (5-34); Albumin 3.9 g/dL (3.4-4.8); Alkaline Phosphatase 46 U/L (40-110); Anion Gap 13 mmol/L (10-20); BUN (Urea Nitrogen) 11 mg/dL (8.4-25.7); Bilirubin, Total 0.7 mg/dL (0.2-1.2); Calc. Creatinine Clearance 121 mL/min (70-130); Calcium 8.9 mg/dL (7.8-10.44); Carbon Dioxide 25 mmol/L (23-31); Chloride 107 mmol/L (98-107); Cholesterol 137 mg/dl (< 200 Desired); Estimated GFR-MDRD Greater than 90; Globulin 2.3 g/dL (2.4-3.5); Glucose 125 mg/dL (80-115); HDL Cholesterol 34 mg/dL (>60 Neg Risk); LDL Cholesterol, Calculated 80 mg/dL; Potassium 3.4 mmol/L (3.5-5.1); Protein, Total 6.2 g/dL (5.8-8.1); Sodium 142 mmol/L (136-145); Triglycerides 115 mg/dL (Less than 150)
--- NOTE | 2020-04-20 07:01 | PDOC.FM ---
- Subjective Subjective: Doing well this morning. States his pain has resolved. The pain has been intermittent over the last week and he was concerned on Monday and went to [facility] for evaluation of his lower extremities because he feared DVT/PE. - Objective MAR Reviewed: Yes Vital Signs & Weight: Vital Signs (12 hours) Temp Pulse Resp BP Pulse Ox 04/20/20 01:38 98.5 F 61 20 142/88 H 94 L 04/20/20 00:00 68 20 127/75 97 04/19/20 23:37 96 04/19/20 23:00 98.3 F 75 18 141/88 H 96 Weight Weight 98.883 kg Result Diagrams: 04/20/20 05:51 04/20/20 05:51 Phys Exam - Physical Examination Constitutional: NAD HEENT: PERRLA, moist MMs Neck: no nodes, no JVD, supple Respiratory: no wheezing, no rales, no rhonchi, clear to auscultation bilateral Cardiovascular: RRR, no significant murmur, no rub Gastrointestinal: soft, non-tender Musculoskeletal: no edema, pulses present Neurological: non-focal, normal sensation, moves all 4 limbs Psychiatric: normal affect, A&O x 3 Skin: no rash, normal turgor Dx/Plan (1) Personal history of DVT (deep vein thrombosis) Code(s): Z86.718 - PERSONAL HISTORY OF OTHER VENOUS THROMBOSIS AND EMBOLISM Status: Acute (2) History of pulmonary embolism Code(s): Z86.711 - PERSONAL HISTORY OF PULMONARY EMBOLISM Status: Acute (3) Diabetes type 2, controlled Code(s): E11.9 - TYPE 2 DIABETES MELLITUS WITHOUT COMPLICATIONS Status: Acute (4) Atypical chest pain Code(s): R07.89 - OTHER CHEST PAIN Status: Acute (5) HLD (hyperlipidemia) Code(s): E78.5 - HYPERLIPIDEMIA, UNSPECIFIED Status: Chronic (6) HTN (hypertension) Code(s): I10 - ESSENTIAL (PRIMARY) HYPERTENSION Status: Chronic (7) PVC (premature ventricular contraction) Code(s): I49.3 - VENTRICULAR PREMATURE DEPOLARIZATION Status: Chronic - Plan Plan: Atypical Chest Pain ACS vs GERD. Heart score 7. -Trop 0.034 > 0.036 > 0.027 -Stress test this AM. Per patient, last stress was ~[address] Barragan outpatient. Hypokalemia K: 2.9 > 3.4 -Will monitor and replace as needed. Hx of PVCs - EKG showed sinus rhythm with PVCs - on metoprolol succinate, will hold until after stress Hx of DMII - mild SSI, hypoglycemia protocol, will continue home metformin. A1c 6.1. Hx of PE/DVT -Was seen @ [facility] last Monday and had US of BLE and EKG which were WNL. -Negative D dimer -Contine home Eliquis 5mg po BID Dispo: admit tele, obs. LOS <48hrs Code: Full code Ppx: home Eliquis 5mg, pepcid PCP: Arabella Addendum - Attending - Attending Attestation Date/Time: 04/20/20 1212 I personally evaluated the patient and discussed the management with Dr. Webb. I agree with the History, Examination, Assessment and Plan documented above with any addition or exceptions noted below. Patient here for concern for ACS. Ruled out with enzymes. He is going for stress testing today. His pain is resolved. Further mgmt pending that result.
[2020-04-20] MEDS ORDERED: Prevnar 13-Val Conj/PF 0.5 ML SYRINGE IM ONE (09:00)
[2020-04-20] MEDS ORDERED: Aspirin 325 mg Enteric Coated Tablet PO SCH (09:00)
[2020-04-20] MEDS: metFORMIN XR 500 MG TAB PO SCH (09:15)
[2020-04-20] MEDS: Atorvastatin Calcium 10 MG TAB PO SCH (09:15)
[2020-04-20] MEDS: Apixaban 5 MG TAB PO SCH ×2 (09:15→20:55)
[2020-04-20] MEDS: Aspirin 81 mg Enteric Coated Tablet PO SCH (09:15)
[2020-04-20] MEDS: Hydrochlorothiazide 25 MG TAB PO SCH (09:16)
[2020-04-20] MEDS: Famotidine 20 MG TAB PO SCH ×2 (09:16→20:55)
[2020-04-20] MEDS ORDERED: Potassium Chloride 20 MEQ TAB PO SCH (12:00)
[2020-04-20 12:04] VITALS: BMI 30.5
[2020-04-20] MEDS ORDERED: ADENOSINE 60 MG/20 ML VIAL ONE (13:18)
--- NOTE | 2020-04-20 17:07 | NM ---
NUCLEAR MEDICINE CARDIAC MYOCARDIAL PERFUSION SPECT EJECTION FRACTION STUDY WALL MOTION CINE: DATE: 04/20/2020 HISTORY: 69-year-old male with hypertension, diabetes mellitus, dyslipidemia, and family history of coronary a rtery disease, presents with chest pain TECHNIQUE: Number of days: 1 Rest study: Technetium 99m-sestamibi (Cardiolite) dose: 9.1 mCi Pharmacologic stress: Adenosine dose: 55.4 mg Stress study: Technetium 99m-sestamibi (Cardiolite) dose: 30.0 mCi FINDINGS: CARDIAC (MYOCARDIAL PERFUSION) SPECT There are no reversible myocardial perfusion defects. EJECTION FRACTION STUDY Left ventricular EF = 56 % WALL MOTION CINE Normal IMPRESSION: No evidence of reversible ischemia.
[2020-04-20] MEDS ORDERED: Ketorolac Tromethamine 30 MG/ML VIAL IVP SCH (17:45)
[2020-04-20] MEDS ORDERED: Zolpidem Tartrate 5 MG TAB PO PRN (21:00)
[2020-04-21 04:17] LABS: Platelet Count 205 thou/uL (130-400)
[2020-04-21 04:36] LABS: Calc. Creatinine Clearance 118 mL/min (70-130); Estimated GFR-MDRD Greater than 90
--- NOTE | 2020-04-21 05:40 | PDOC.FM ---
- Subjective Subjective: No acute events overnight. Pt reports improved chest pain, but says that the area is slab off mill tender. Denies SOB, SHAVER. Reports that he is nervous about going home, but is reassured by test results. - Objective MAR Reviewed: Yes Vital Signs & Weight: Vital Signs (12 hours) Temp Pulse Resp BP Pulse Ox 04/21/20 05:00 98.2 F 78 18 126/70 97 04/20/20 19:25 97.5 F L 72 16 128/61 96 04/20/20 18:06 153/71 H Weight Weight 97.432 kg I&O: 04/19/20 04/20/20 04/21/20 06:59 06:59 06:59 Intake Total 960 Output Total 600 Balance 360 Result Diagrams: 04/21/20 03:57 04/21/20 08:03 EKG Reviewed by me: Yes (SR with bigeminy PVC) Phys Exam - Physical Examination Constitutional: NAD HEENT: PERRLA, moist MMs Neck: supple, full ROM Respiratory: no wheezing, no rales, no rhonchi, clear to auscultation bilateral Cardiovascular: no significant murmur, no rub Gastrointestinal: soft, non-tender, positive bowel sounds Musculoskeletal: edema present Neurological: non-focal, moves all 4 limbs Psychiatric: normal affect, A&O x 3 Skin: no rash Dx/Plan - Plan Plan: Atypical Chest Pain ACS vs GERD. Heart score 7. -Trop 0.034 > 0.036 > 0.027 -Stress test Hypokalemia -K: 2.9 > 3.4 > pending -Will monitor and replace as needed Hx of PVCs -SR with PVCs -Metoprolol resumed after stress test Hx of DMII -hypoglycemia protocol ordered -continue home metformin -SSI in place Hx of PE/DVT -U/S of BLE and EKG last Monday: WNL -Negative D dimer -Home Eliquis 5mg po BID Dispo: likely discharge home today Code: Full code Ppx: home Eliquis 5mg, pepcid PCP: Arabella Hameedum - Attending - Attending Attestation Date/Time: 04/21/20 1124 I personally evaluated the patient and discussed the management with Dr. Jauregui. I agree with the History, Examination, Assessment and Plan documented above with any addition or exceptions noted below. Patient doing well. No recurrence of chest pain. Stress test normal. Stable for discharge.
[2020-04-21] MEDS: metFORMIN XR 500 MG TAB PO SCH (08:39)
[2020-04-21] MEDS: Apixaban 5 MG TAB PO SCH (08:40)
[2020-04-21] MEDS: Famotidine 20 MG TAB PO SCH (08:40)
[2020-04-21] MEDS: Atorvastatin Calcium 10 MG TAB PO SCH (08:40)
[2020-04-21] MEDS: Aspirin 81 mg Enteric Coated Tablet PO SCH (08:40)
[2020-04-21] MEDS: Hydrochlorothiazide 25 MG TAB PO SCH (08:40)
[2020-04-21 09:00] LABS: Anion Gap 15 mmol/L (10-20); BUN (Urea Nitrogen) 10 mg/dL (8.4-25.7); Calc. Creatinine Clearance 114 mL/min (70-130); Calcium 9.2 mg/dL (7.8-10.44); Carbon Dioxide 22 mmol/L (23-31); Chloride 106 mmol/L (98-107); Estimated GFR-MDRD 88; Glucose 132 mg/dL (80-115); Potassium 3.5 mmol/L (3.5-5.1); Sodium 139 mmol/L (136-145)
[2020-04-21] MEDS ORDERED: Amlodipine 5 mg/Benazepril 20 mg CAP PO SCH (09:00)
[2020-04-21] MEDS ORDERED: Prevnar 13-Val Conj/PF 0.5 ML SYRINGE IM ONE (09:00)
[2020-04-21 11:12] VITALS: BP 137/67; TEMP 98.4
--- NOTE | 2020-04-22 15:13 | DIS ---
DATE OF ADMISSION: 04/19/2020 DATE OF DISCHARGE: 04/21/2020 RESIDENT: Mary Jauregui MD DISCHARGE ATTENDING: Eloy Mullen MD CONSULTS: None. PROCEDURES: 1. X-ray: No evidence of acute cardiopulmonary disease. 2. Stress test nuclear medicine: No reversible myocardial perfusion defects. Left ventricular ejection fraction 56%. Wall motion, normal. PRIMARY DIAGNOSIS: Atypical chest pain secondary to MSK etiology SECONDARY DIAGNOSES: 1. History of deep vein thrombosis/pulmonary embolism. 2. Hypokalemia. 3. History of premature ventricular complexes. 4. History of type 2 diabetes mellitus. 5. Hypertension. 6. Hyperlipidemia. DISCHARGE MEDICATIONS: 1. HCTZ 25 mg p.o. daily. 2. Amlodipine besylate-benazepril 10 mg/40 mg one capsule p.o. daily. 3. Metformin 1000 mg p.o. daily. 4. Ambien 12.5 mg p.o. at bedtime p.r.n. 5. Metoprolol succinate 100 mg p.o. daily. 6. Atorvastatin 10 mg p.o. daily. 7. Aspirin 81 mg p.o. daily. 8. Apixaban 5 mg p.o. daily. 9. Acetaminophen 650 mg p.o. q.4 hours p.r.n. DISCONTINUED MEDICATIONS: None. HISTORY OF PRESENT ILLNESS/HOSPITAL COURSE: Mr. Winkler is a 69-year-old male with prior history of PE, DVT, hypertension, diabetes mellitus, hyperlipidemia, currently on Eliquis, who presented with new onset chest pain likely secondary to MSK etiology as the chest was tender to palpation. In the ED, he received morphine x2, aspirin, and potassium. EKG showed normal sinus rhythm with PVCs. His troponin was 0.034 that was trended to 0.036 and then again to 0.027. He received a nuclear medicine test, which showed no concern for reversible ischemia. The patient was reassured of his findings. The patient was stable overnight and was discharged home with instructions to follow up with his PCP. DISPOSITION: Stable. DISCHARGE INSTRUCTIONS: 1. Location: Home. 2. Diet: Heart healthy and consistent carb. 3. Activity: As tolerated. 4. Followup: Dr. Bell. Job ID: [id number] MTDD
== END 2020-04-21 13:40 | disposition home or self-care (01) ==
LOC: ERS 17:49 → ERHOLD 20:44 → 2NO 04-20 11:59
PROVIDERS: ADMIT Emergency Medicine; ATTEND Emergency Medicine
DX: R07.89 Other chest pain (principal); E87.6 Hypokalemia; I10 Essential (primary) hypertension; E11.9 Type 2 diabetes mellitus without complications; E78.5 Hyperlipidemia, unspecified; I49.3 Ventricular premature depolarization; Z79.82 Long term (current) use of aspirin; Z79.84 Long term (current) use of oral hypoglycemic drugs; Z79.899 Other long term (current) drug therapy; Z79.01 Long term (current) use of anticoagulants; Z86.711 Personal history of pulmonary embolism; Z86.718 Personal history of other venous thrombosis and embolism
CPT/HCPCS: 36415; 36416; 71045; 78452; 80053; 80061; 82553; 82565; 83036; 83690; 83880; 84484; 85014; 85018; 85025; 85049; 85379; 85610; 85730; 90471; 90670; 93005; 93017; 94760; 96374; 96375; 96376; A9500; G0009; G0378; J0153; J0360; J1885; J2270

== ENCOUNTER 2020-04-27 07:54 | Outpatient (CLI) | payer BC, MEDICARE ==
[2020-04-28 12:05] LABS: SARS-CoV-2 MS2 Positive; SARS-CoV-2 N Gene Negative; SARS-CoV-2 S Gene Negative; SARS-CoV-2 by NAA Not Detected (NotDetected); SARS-CoV-2 orf1ab Negative
== END 2020-04-27 07:55 | disposition home or self-care (01) ==
LOC: LABBT 07:54
PROVIDERS: ATTEND Ophthalmology Retina Specialist
DX: Z01.812 Encounter for preprocedural laboratory examination (principal); Z11.59 Encounter for screening for other viral diseases; H43.11 Vitreous hemorrhage, right eye
CPT/HCPCS: 87635; U0003

== ENCOUNTER 2020-04-30 06:26 | Day surgery (SDC) | payer BC, MEDICARE ==
[2020-04-23 14:40] VITALS: BMI 30.4
[~2020-04-30 06:26] MED LIST: EPINEPHrine 0.3 MG in Ophthalmic Irrigation Solution 500 ML IRR SCH
[2020-04-30] MEDS ORDERED: Fentanyl 100 MCG/2 ML VIAL ONE (06:53)
[2020-04-30] MEDS ORDERED: Midazolam HCl 2 mg/2 ml Vial ONE (06:53)
[2020-04-30] MEDS ORDERED: Cyclopentolate 1% Opth Drop 2 ML BOT ONE (07:04)
[2020-04-30] MEDS ORDERED: Phenylephrine 2.5% Ophth Soln 5 ML BOT ONE (07:04)
[2020-04-30] MEDS ORDERED: Lidocaine 1% PF 5 ML VIAL ONE (09:49)
[2020-04-30] MEDS ORDERED: Bupivacaine PF 0.75% SDV 10 ML ONE (09:49)
[2020-04-30] MEDS ORDERED: Triamcinolone 40 MG/ML VIAL ONE (09:49)
[2020-04-30] MEDS ORDERED: Lidocaine 4% PF 5 ML AMP ONE (09:49)
[2020-04-30] MEDS ORDERED: CEFAZOLIN 1 GM VIAL ONE (09:49)
[2020-04-30] MEDS ORDERED: PROPOFOL 200 MG/20 ML VIAL ONE (09:49)
[2020-04-30] MEDS ORDERED: Maxitrol 0.1% Opth Oint 3.5 GM TUBE ONE (09:49)
--- NOTE | 2020-05-01 13:55 | OP ---
DATE OF PROCEDURE: 04/30/2020 PREOPERATIVE DIAGNOSIS: Vitreous hemorrhage, right eye. POSTOPERATIVE DIAGNOSIS: Vitreous hemorrhage, right eye. PROCEDURE: Pars plana vitrectomy and panretinal photocoagulation, right eye. ANESTHESIA: Local with monitored anesthesia care. PROCEDURE IN DETAIL: In the preoperative holding area, appropriate informed consent for the planned surgical procedure on the right eye had been obtained. The patient was transported to the operative suite where appropriate cardiopulmonary monitoring was established. Local anesthesia was obtained using retrobulbar modified Van Lint lid block using 50:50 mixture of 4% lidocaine and 0.75% bupivacaine. The patient was prepped and draped in the usual sterile manner for ophthalmic surgery on the right eye. Lid speculum was placed in the right eye. A 27-gauge trocar was placed through the conjunctiva and sclera superotemporally, inferotemporally, supranasally. Infusion line was placed inferotemporally. Light pipe and vitreous cutter were inserted into the eye. Core vitrectomy was performed. Vitreous hemorrhage was removed from the eye, revealing an old retinal vein occlusion in the superior quadrant with a retinal hole in the mid periphery. This area was treated with endolaser photocoagulation in panretinal fashion and prophylactic laser was placed behind the sclerotomy sites. No other holes, breaks, or tears were identified. Trocars were removed and eye was noted to retain pressure well. Retrobulbar Kenalog and subconjunctival Ancef were placed. Antibiotic ointment placed. Eye was patched and shielded. The patient was taken to postoperative recovery unit in good condition, having suffered no immediate perioperative complications. The patient was instructed to keep patch and shield on, avoid lifting or bending, followup appointment with Dr. Townsend. Job ID: [id number]
== END 2020-04-30 09:30 | disposition home or self-care (01) ==
LOC: SDC 06:26
PROVIDERS: ATTEND Ophthalmology Retina Specialist
PROC: 08T43ZZ Resection of Right Vitreous, Percutaneous Approach (ICD-10-PCS; principal; 2020-04-30)
PROC: 085E3ZZ Destruction of Right Retina, Percutaneous Approach (ICD-10-PCS; principal; 2020-04-30)
DX: H43.11 Vitreous hemorrhage, right eye (principal); Z79.01 Long term (current) use of anticoagulants; Z79.82 Long term (current) use of aspirin; Z79.84 Long term (current) use of oral hypoglycemic drugs; Z79.899 Other long term (current) drug therapy
CPT/HCPCS: J0171; J0690; J2001; J2250; J2704; J3010; J3301; J3490